=== PATIENT | female | born 1975 | race Caucasian/White ===

== ENCOUNTER 2025-02-27 09:56 | Emergency (ER) | payer OTHER, SELFPAY ==
--- OUTSIDE RECORDS SUMMARY | 2025-02-27 10:00 | XMS_ITS | Clinical Summary ---
Author Organization [facility] Address [address], [place] [address] Care Team Providers Care Kennel Staff Member Name Role Phone Lupe Anderson MD Primary Care Provider [phone] Source Comments You are receiving this document as you are listed as the primary care provider,follow-up provider, or the patient has been referred to you for consultation.This is in compliance with the Medicare and[facility] EHR Incentive Program,which states Providers who transition their patient to another setting of careor provider of care or refers their patient to another provider of care shouldprovide summary care record for each transition of care or referral. [employer] Allergies Active Allergy Reactions Criticality Noted Date Comments Amoxicillin-Pot Clavulanate 10/20/2017 Unknown reaction Meperidine 09/29/2017 Ketorolac 10/20/2017 Unknown reaction Other Other, see comments 02/09/2016 'can't remember the names of three pain medicines that I had a reaction to. They weren't sure which medicine I reacted to. My whole body went numb. Promethazine 10/20/2017 Unknown reaction Medications acetaminophen (TYLENOL) 500 MG tablet Take 500-1,000 mg by mouth every 4 hours as needed for Pain. Maximum acetaminophen dose is 4000 mg in 24 hours Active Active Problems Problem Noted Date Diagnosed Date Tear of medial meniscus of left knee, current Social History Tobacco Use Types Packs/Day Years Used Date Smoking Tobacco: Never Smokeless Tobacco: Never Alcohol Use Standard Drinks/Week Comments No 0 (1 standard drink = 0.6 oz pur e alcohol) Comments Unknown Sex and Gender Information Value Date Recorded Sex Assigned at Not on file Legal Sex Female 4:47 AM CDT Gender Identity Not on file Sexual Orientation Not on file Last Filed Vital Signs Vital Sign Reading Time Taken Comments Blood Pressure 119/71 01/11/2021 3:15 PM CDT Pulse 59 01/11/2021 3:30 PM CDT Temperature 36.8 C (98.2 F) 01/11/2021 2:30 PM CDT Respiratory Rate 14 01/11/2021 3:30 PM CDT Oxygen Saturation 99% 01/11/2021 3:30 PM CDT Inhaled Oxygen Concentration - - Weight 56.7 kg (125 lb) 12/21/2020 1:58 PM CDT Height 170.2 cm (5' 7) 12/21/2020 1:58 PM CDT Body Mass Index 19.58 12/21/2020 1:58 PM CDT Plan of Treatment Health Maintenance Due Date Last Done Comments Cervical Cancer Screening Due 1976 Colon Cancer Screening Plan Due 1976 Hep C Screening (Preventive Services) 1976 Mammogram 1976 HIV Screening (Preventive Services) 1992 Adult Preventive Visit 01/06/1994 HepB Vaccine (1) 01/06/1995 Cholesterol 01/06/2021 COVID-19 Vaccine ( season) 2024 11/06/2020, 09/27/2020 Influenza Vaccine (#1) 2025 , 05/19/2019, 05/20/2018, Additional history exists Zoster/Shingles Vaccine (1 of 2) 01/06/2026 DTaP/Tdap/Td Vaccine (3 - Tdap) 2031 2021, 10/08/2017 HepA Vaccine Aged Out No longer eligi ble based on patient's age to complete this topic Hib Vaccine Aged Out No longer eligi ble based on patient's age to complete this topic IPV (Polio) Vaccine Aged Out No longe r eligible based on patient's age to complete this topic MCV4 Vaccine Aged Out No longer eligi ble based on patient's age to complete this topic Meningococcal B Vaccine Aged Out No l onger eligible based on patient's age to complete this topic Pneumococcal Vaccine Aged Out No long er eligible based on patient's age to complete this topic Insurance [facility] Advance Directives * Full Code (Latest Code Status on File) Date Activated Date Inactivated Comments 01/11/2021 1:02 PM 01/11/2021 6:36 PM Care Teams Kennel Staff Member Relationship Specialty [place] [id number] [place], [place] [id number] PCP - General Family Practice 10/21/17
--- OUTSIDE RECORDS SUMMARY | 2025-02-27 10:00 | XMS_ITS | Clinical Summary ---
Author Organization [facility] Address [address] [place] [id number] Care Team Providers Care Shower Room Attendant Name Role Phone Clinic, [facility] Primary Care Provide r Allergies Active Allergy Reactions Criticality Noted Date Comments Meperidine 11/04/2017 Medications No known medications Active Problems Problem Noted Date Diagnosed Date Knee pain 02/01/2009 Family History Medical History Relation Comments Breast Cancer No family hx of Ovarian Cancer No family hx of Social History Tobacco Use Types Packs/Day Years Used Date Smoking Tobacco: Never Assessed Adolescent Education Answer Date Record ed Getting School Help Needed Not on file 05/27 Comments Unknown Sex and Gender Information Value Date Recorded Sex Assigned at Not on file Legal Sex Female 4:24 AM [employer]CE[employer] Gender Identity Not on file Sexual Orientation Not on file Plan of Treatment Health Maintenance Due Date Last Done Comments ADVANCE CARE PLANNING 1975 ANNUAL REVIEW OF HM ORDERS 1976 CT COLONOGRAPHY 1976 DIABETES SCREENING 1976 FIT 1976 FLEX SIG 1976 sDNA (Cologuard) 1976 COLONOSCOPY 01/06/1986 COLORECTAL CANCER SCREENING 01/06/1986 HIV SCREENING 01/06/1991 HEPATITIS C SCREENING 01/06/1994 HEPATITIS B VACCINE (1 of 3 - 19+ 3-dose series) 01/06/1995 LIPID 2016 COVID-19 VACCINE ( season) 2024 07/27/2021, 11/06/2020, 09/27/2020 YEARLY PREVENTIVE VISIT 05/26/2024 05/26/2023 PHQ-2 (once per calendar year) 2024 INFLUENZA VACCINE (Season Ended) 2025 06/03/2023, 06/21/2022, 07/02/2021, Additional history exists ZOSTER VACCINE (1 of 2) 01/06/2026 MAMMO SCREENING 07/05/2026 07/05/2024, 02/22, 03/03/2022, Additional history exists HPV TEST 05/26/2028 05/26/2023 PAP 05/26/2028 05/26/2023 DTAP/TDAP/TD VACCINE (3 - Td or Tdap) 2031 2021, 10/08/2017 HPV VACCINE Aged Out No longer eligi ble based on patient's age to complete this topic MENINGITIS VACCINE Aged Out No longer eligible based on patient's age to complete this topic PNEUMOCOCCAL VACCINE: PEDIATRICS (0 to 5 YEARS) AND AT-RISK PATIENTS (6 to 49 YEARS) Aged Out No longer eligible based on patient's age to complete this topic Procedures Procedure Name Priority Date/Time Associated Diagnosis Comments MA SCREENING BILATERAL W/ DWAINE Routine 07/05/2024 3:51 PM [employer] Visit for screening mammogram GYNECOLOGIC CYTOLOGY Routine 05/26/2023 3:01 PM CDT Encounter for screening for malignant neoplasm of cervix HPV HIGH RISK TYPES DNA CERVICAL Routine 05/26/2023 3:01 PM CDT Encounter for screening for malignant neoplasm of cervix from Last 3 Months or Most Recently Relevant to Health Maintenance Results * MA Screen Bilateral w/Dwaine (07/05/2024 3:51 PM [employer]) Anatomical Region Laterality Modality Breast Bilateral Mammography Impressions 07/06/2024 8:31 AM [employer]CELL [employer]CTOR [employer]ACER IMPRESSION: ACR BI-RADS Category 1: Negative BREAST CANCER SCREENING RECOMMENDATION: Routine yearly mammography beginning at age 40 or as discussed with your provider. The results and recommendations of this examination will be communicated to the patient. Ace Tripp MD Narrative 07/06/2024 8:31 AM INTERCELL [employer]CTOR [employer]ACER BILATERAL FULL FIELD DIGITAL SCREENING MAMMOGRAM WITH TOMOSYNTHESIS Performed on: 07/05/24 Compared to: 03/19/2023, 03/03/2022, and 03/01/2021 Technique: This study was evaluated with the assistance of Computer-Aided Detection. Breast Tomosynthesis was used in interpretation. Findings: The breasts are extremely dense, which lowers the sensitivity of mammography. There is no radiographic evidence of malignancy. Lupe Anderson MD IMG MAMMOGRAPHY ORDERABLES F inal Result * Gynecologic Cytology (PAP) (05/26/2023 3:01 PM CDT) Interpretation Negative for Intraepithelial Lesion or Malignancy (NILM) 05/29/2023 8:37 AM CDT [facility] at 0837 CDT Comment Papanicolaou Test Limitations: Cervical cytology is a screening test with limited sensitivity, and regular screening is critical for cancer prevention. Pap tests are primarily effective for the diagnosis/prevent ion of squamous cell carcinoma, not adenocarcinoma or other cancers. 05/29/2023 8:37 AM CDT [facility] Specimen Adequacy Satisfactory for evaluation, endocervical/yost sformation zone component present 05/29/2023 8:37 AM CDT [facility] Clinical Information none 05/29/2023 8:37 AM CDT [facility] LMP/Menopause Date 04/18/2023 05/29/2023 8:37 AM CDT [facility] Reflex Testing Yes regardless of result 05/29/2023 8:37 AM CDT [facility] Previous Abnormal? No 05/29/2023 8:37 AM CDT [facility] Previous Abnormal Diagnosis NL 05/29/2023 8:37 AM CDT [facility] Performing Labs The technical component of this testing was completed at [facility] 05/29/2023 8:37 AM CDT [facility] Brushing CERVIX UTERI STRUCTURE / Unknown 05/26/2023 3:01 PM CDT 05/26/2023 9:30 PM CDT Sandy CERNA - JOSIE TEJEDA Final Result [facility] Specialty Lab [address], [address] [place] [address], [place] [phone] * HPV High Risk Types DNA Cervical (05/26/2023 3:01 PM CDT) Other HR HPV Negative Negative 06/03/2023 6:22 AM CDT [facility] HPV16 DNA Negative Negative 06/03/2023 6:22 AM CDT [facility] HPV18 DNA Negative Negative 06/03/2023 6:22 AM CDT [facility] FINAL DIAGNOSIS This patient's sample is negative for HPV DNA. This test was developed and its performance characteristics determined by the [facility]. It has not been cleared or approved by the FDA. The laboratory is regulated under CLIA as qualified to perform high-complexity testing. This test is used for clinical purposes. It should not be regarded as investigational or for research. METHODOLOGY: The [employer] 4800 system uses automated extraction, simultaneous amplification of HPV (L1 region) and beta-globin, followed by real time detection of fluorescent labeled HPV and beta globin using specific oligonucleotide probes. The test specifically identifies types HPV 16 DNA and HPV 18 DNA while concurrently detecting the rest of the high risk types (31, 33, 35, 39, 45, 51, 52, 56, 58, 59, 66 or 68). COMMENTS: This test is not intended for use as a screening device for woman under age 30 with normal cervical cytology. Results should be correlated with cytologic and histologic findings. Close clinical followup is recommended. 06/03/2023 6:22 AM CDT [facility] Brushing CERVIX UTERI STRUCTURE / Unknown Non-blood Collection / Unknown 05/26/2023 3:01 PM CDT 06/01/2023 10:02 AM CDT us Sandy Curiel MD LAB - BLOOD ORDERABLES Final R esult [facility] [address] [place] [address], [place] [phone] from Last 3 Months or Most Recently Relevant to Health Maintenance Insurance NONE (Work) [id number] [place] [id number] [facility] Care Teams Shower Room Attendant Relationship Specialty Start Date End Date Clinic, [facility] [address] [place] [address] PCP - General 10/16/17
--- OUTSIDE RECORDS SUMMARY | 2025-02-27 10:00 | XMS_ITS | Data Portability ---
Author Organization [place] - [place] CLIMATOLOGY PROFESSOR, [id number] Address [address] [place] [address] Care Team Providers Care Digital Associate Media Director Name Role Phone JAIDEN TOMLIN Primary Care Provider Assessment No assessment recorded. Plan of Treatment Reminders Order Date Submit Date Provider Last Modified By Organization Details Last Modified Time Details Appointments None recorded. Lab lipid panel, serum 2022 023 david Dunbar (Lab), [address], [place], [address], 4 08:57:40 urinalysis, dipstick, auto 2022 023 [email or web address] [email or web address] [facility], [address] [facility], [address], [place], [address], 3 19:55:58 Pap test, slide(s), cervical [address] [facility], [address] [place] [address], [address], [place], [address], 3 07:26:25 hemoglobin (Hb), blood 2022 023 david Dunbar (Lab), [address], [place], [address], 4 08:57:40 vitamin D panel, serum or plasma 2022 023 david Dunbar (Lab), [address], [place], [address], 4 08:57:39 test, urine 2022 023 [email or web address] [id number]_agvzdtv rtners_[facility], [address] [facility], [address], [place], [address], 19:55:58 glucose, QN [mass/volum e], blood 2022 023 [facility] (Lab), [address], [place], [address], 4 08:57:40 Referral None recorded. Procedures None recorded. Surgeries None recorded. Imaging None recorded. Medication Orders None recorded. Patient TargetsNo targets recorded. Patient InstructionsNo instructions recorded. Reason for Referral None Reported. Results Created Date Observation Date Name Description Value Unit Range Abnormal Flag Note LastModifiedBy Organization Detail LastModifiedTime 05/26/2005/26/2023 GYNEC OLOGI C CYTOL OGY (PAP SMEAR ) gynecologic cytology SEE RESULT S BELOW SPECI MEN SOURC E [place] ing Cervi x BKR LAB AP MARINE SCIENTIST INTER PRETA TION: Negat mauricio for Intra epith elial Mars n or Chelsie wooten (NILM ) Elect prasad victoria nolvia d by Javier Raphael, CT (ASCP ) on 2022 at 8:37 AM Path repor [email or web address] ments Imp Spec: Papan icola ou Test Limit ation s: Cervi shan cytol ogy is a scree shana test with limit ed sensi tivit y, and regul ar scree shana is criti shan for cance r preve ntion . Pap tests are prima rily effec tive for the diagn osis/ preve ntion of squam ous cell carci noma, not adeno carci noma or other cance rs. BKR LAB AP MARINE SCIENTIST ADEQU ACY: Satis facto ry for evalu ation , endoc ervic al/tr ansfo rmati on zone compo nent prese nt Path repor t.rel evant Hx Spec: none BKR LAB AP LMP: 08/26 /2023 BKR LAB AP HPV REFLE X: Yes regar dless of resul t BKR LAB AP PREVI OUS ABNOR MAL: No BKR LAB AP PREVI OUS ABNL DX: NL Path repor [email or web address] ments Imp Spec: The techn ical compo nent of this testi ng was compl eted at [facility] Labor atory Not Available [address], [place], [address], 06/03/2023 07:26:25 05/26/20 23 05/26/2023 HPV HIGH RISK TYPES DNA CERVI SHAN other HR HPV Negati ve negati ve Not Available [address], [place], [address], 06/03/2023 07:26:44 05/26/20 23 05/26/2023 HPV HIGH RISK TYPES DNA CERVI SHAN HPV16 DNA Negati ve negati ve Not Available [address], [place], [address], 06/03/2023 07:26:44 05/26/20 23 05/26/2023 HPV HIGH RISK TYPES DNA CERVI SHAN HPV18 DNA Negati ve negati ve Not Available [address], [place], [address], 06/03/2023 07:26:44 05/26/20 23 05/26/2023 HPV HIGH RISK TYPES DNA CERVI SHAN final diagnosis See note below This patie nt's sampl e is negat mauricio for HPV DNA. This test was devel oped and its perfo rmanc e gamal cteri stics deter mined by the [facility], [facility] Labor atory . It has not been clear ed or appro millie by the FDA. The labor atory is regul ated under CLIA as quali fied to perfo rm high- compl exity testi ng. This test is used for clini shan purpo ses. It shoul d not be regar ded as inves tigat ional or for resea rch. METHO DOLOG Y: The [employer] [address] 4800 syste m uses autom ated extra ction , simul taneo us ampli ficat ion of HPV (L1 regio n) and beta- globi n, follo wed by real time detec tion of fluor escen t label ed HPV and beta globi n using speci fic oligo nucle otide probe s. The test speci fical ly ident ifies types HPV 16 DNA and HPV 18 DNA while concu rrent ly detec ting the rest of the high risk types (31, 33, 35, 39, 45, 51, 52, 56, 58, 59, 66 or 68). COMME NTS: This test is not inten ded for use as a scree shana devic e for woman under age 30 with juan l cervi shan cytol ogy. Resul ts shoul d be corre lated with cytol ogic and histo logic findi ngs. Close clini shan follo wup is recom tiago d. Not Available [address], [place], [address], 06/03/2023 07:26:44 05/26/20 23 05/26/2023 pregn faye test, urine Unknown Analyte negati ve Not Available [id number] pa [facility] [address] [place] [address], [address], 05/26/2023 15:53:36 05/26/20 23 05/26/2023 pregn faye test, urine Unknown Analyte Negati ve Not Available [id number]_ydrjf pa [facility] [address] [facility], [place], [address], 05/26/2023 15:53:36 05/26/20 23 05/26/2023 urina lysis , dipst ick, auto Unknown Analyte Clean Catch Not Available [id number]_msezy pa [facility] ry [address], [place], [address], 05/05/2023 17:31:45 05/26/2005/26/2023 urina lysis , dipst ick, auto Unknown Analyte negati ve Not Available [id number]_[id number] pa rtners_[facility] ry [address], [place], [address], 05/05/2023 17:31:45 05/26/2005/26/2023 urina lysis , dipst ick, auto Unknown Analyte negati ve Not Available [id number] pa rtners_[facility] [address], [place], [address], 05/05/2023 17:31:45 05/26/20 23 05/26/2023 urina lysis , dipst ick, auto Unknown Analyte negati ve Not Available [id number]_lfkwf pa rtners_[facility] [address], [place], [address], 05/05/2023 17:31:45 05/26/20 23 05/26/2023 urina lysis , dipst ick, auto Unknown Analyte 1.015 Not Available Cc003_ metropa rtners_lázaro ry [address], [place], [address], 05/05/2023 17:31:45 05/26/20 23 05/26/2023 urina lysis , dipst ick, auto Unknown Analyte negati ve Not Available [id number]_szldv pa rtners_[facility] ry [address], [place], [address], 05/05/2023 17:31:45 05/26/20 23 05/26/2023 urina lysis , dipst ick, auto Unknown Analyte 6.0 Not Available Cc003_ metropa rtners_l[facility]aro ry [address], [place], [address], 05/05/2023 17:31:45 05/26/2005/26/2023 urina lysis , dipst ick, auto Unknown Analyte negati ve Not Available [id number]_wadon pa rtners_l[facility] [address], [place], [address], 05/05/2023 17:31:45 05/26/2005/26/2023 urina lysis , dipst ick, auto Unknown Analyte 0.2 Not Available Cc003_ metropa rtners_lázaro ry [address], [place], [address], 05/05/2023 17:31:45 05/26/2005/26/2023 urina lysis , dipst ick, auto Unknown Analyte negati ve Not Available [id number]_spujh pa rtners_l[facility]aro ry [address], [place], [address], 05/05/2023 17:31:45 05/26/2005/26/2023 urina lysis , dipst ick, auto Unknown Analyte negati ve Not Available [id number]_txelg pa rtners_l[facility]aro ry [address], [place], [address], 05/05/2023 17:31:45 05/26/2005/26/2023 urina lysis , dipst ick, auto Unknown Analyte yellow Not Available Cc003_ metoraa rtners_lázaro ry [address], [place], [address], 05/05/2023 17:31:45 05/26/2005/26/2023 urina lysis , dipst ick, auto Unknown Analyte slight ly cloudy Not Available [id number] pa rtners_l[facility]aro ry [address], [place], [address], 05/05/2023 17:31:45 Result Notes None recorded. Problems Name Problem SNOMED Code Status Onset Date Resolution Date Notes Provider Name and Address Organization Details Recorded Time Hyperlipidemia 87234409 Active ERNIE Mera CLIMATOLOGY PROFESSOR 3 15:22:35 Problem Notes None recorded. Procedures Surgical History Date Name Laterality Status Provider Name and Address Organization Details Recorded Time 3 Date of Last Mammogram completed Breanna KLEIN CLIMATOLOGY PROFESSOR 05/26/2023 15:22:21 8 Date of Last Pap Smear completed Breanna KLEIN CLIMATOLOGY PROFESSOR 05/05/2023 17:30:34 procedure on knee [facility] 05/26/2023 15:25:04 Imaging Results None recorded. Procedure Notes None recorded. Medical Equipment None Reported. Allergies Allergen ID Allergen Name Allergen Category Reaction Reaction Severity Criticality Documentation Date Start Date Code Code System Note Provider Name and Address Organization Details Recorded Time 72324 Dairy medicatio n Not available Not available Not available 03/29/2020 20173 UNK Not Available [facility] 0 05:13:16 99111 Demerol medicatio n Not available Not available Not available 03/29/2020 56100 1 RxNorm Not Available [facility] 0 05:13:16 Medications Not known to be on any medication Vitals Date Recorded Body weight Body mass index (BMI) Body height Systolic And Diastolic Provider Name and Address Organization Details Last Updated DateTime 05/26/2023 56864.23 g 20.5 kg/m2 167.64 cm 118/66 mm[Hg] Breanna KLEIN CLIMATOLOGY PROFESSOR 05/26/2023 15:30:37 Social History Question Answer Notes LastModified by Organizat ion Details LastModified Time Tobacco Smoking Status Never Smoker Tobacco *Status: Never Not Available [facility] 04/02/2020 11:53:46 Do You Have An Advance Directive? Yes Information not available 05/26/2023 What Is Your Level Of Caffeine Consumption? None Information not available 05/26/2023 History Of Domestic Violence No Denies Any History Of Domestic Violence [email or web address] Information not available 04/02/2020 Ethnic Background White Or Information not available 05/26/2023 Marital Status [facility] [employer] on not available 04/02/2020 Performs Monthly Self-breast Exam? Yes Information not available 05/26/2023 What Is Your Relationship Status? Information not available 05/26/2023 Are You Sexually Active? Yes Currently Sexually Active [email or web address] not available 04/02/2020 Sex: Female Functional Status Question Answer Note LastModified by Organizat ion Details LastModified Time Do you use any illicit or recreational drugs? No Information not available 05/26/2023 What is your level of alcohol consumption? None Information not available 05/26/2023 Are you currently employed? Yes Information not available 05/26/2023 What is your occupation? Teacher [email or web address] Information not available 04/02/2020 What is your exercise level? Moderate Exercises on a regular basis *Note: 5-6 HOURS WEEKLY [email or web address] Information not available 04/02/2020 Mental Status None recorded. Family History Relationship Description Onset Age of this Age Resolved Age Notes LastModified by Organization Details LastModified Time Maternal Grandfather Family history of malignant neoplasm Family Histor y of Cancer ; Brain Not available 03/29/2020 05:37:24 Maternal Aunt Family history of diabetes mellitus Family Histor y of Diabet es: MANOJN AL AUNT Not available 03/29/2020 05:37:24 Maternal Grandmother Family history of diabetes mellitus Family Histor y of Diabet es: MANOJN AL AUNT Not available 03/29/2020 05:37:24 Unspecified Relation Malignant tumor of breast Aunt Not available 2022 15:24:03 Medical History Condition Response Cardiology- High Cholesterol Gynecological History Statement/Question Response History of Vulvar Dysplasia N HPV Test Negative Date of Last Mammogram 03/24/2023 Date of LMP 04/18/2023 History of Cervical Dysplasia N Sexual Orientation Heterosexual History of Infertility N Sexually Active Y Age at first intercourse 22 Diethylstilbestrol (MADELINE) exp osed daughters of women who took MADELINE during ? N History of Gestational Diabetes N History of PCOS N History of Endometriosis N History of Abnormal PAP N History of Recurrent Ovarian Cysts N Total lifetime partners Less than 5 Age at Menarche: 19 History of Sexually Transmitted Infectio n N Current Control Method None History of Fibroids N Urinary Incontinence Symptoms N Date of Last Pap Smear 10/13/2017 History of Dysmenorrhea N Obstetrics History GPAL:G 2 P 2 0 0 2 Type Value Multiple Births 0 Full Term 2 Induced 0 Spontaneous 0 Premature 0 Living 2 Ectopics 0 Total 2 Past Encounters Encounter ID Performer Location Encounter Start Date Encounter Closed Date Diagnosis/Indication Diagnosis SNOMED-CT Code Diagnosis ICD10 Code Diagnosis Note [id number] Sandy Curiel MD [id number] DELICIA Go[facility]_[place] Y [address] [address] [place] [address] 05/26/2023 15:01:01 05/27/2023 11:09:17 Gynecologic examination 42812582 Z01.419 Screening for malignant neoplasm of cervix 945307842 Z12.4 Irregular periods 177393 07 N92.6 missed 1 and reassured and if spotting rtc Hyperlipid emia screening 968446339 Z13.220 Diabetes m ellitus screening 402415916 Z13.1 Malnutriti on screening 536011040 Z13.21 Anemia screening 3230651 07 Z13.0 Family his tory of cancer of colon 298361241 Z80.0 dad age 67 and doing well Health Concerns Section Related Observation LastModified by Organization Detai ls LastModified Time None Recorded Concern Status LastModified by Organization Details LastModified Time None Recorded Advance Directives Directive Y: Payers None recorded. Notes Date Note Type Note Provider Name and Address Organization Details Recorded Time 05/26/2023 text/html This is a 48 yea r old female, whose LMP was 04/18/2023, and she is present today for her annual exam. Her menses are regular. She has had no spotting and denies dysmenorrhea. She is sexually active. She reports no problems with intercourse. She is using _what control_. She is having no additional data scientist symptoms. She has not had a history of abnormal pap smears. Pt requests STI testing: [place] [address] [facility],[address], [place], [address], [place] - [facility] CLIMATOLOGY PROFESSOR 05/26/2023 20:12:47 OBGyn Episode No OBEpisode recorded.
--- OUTSIDE RECORDS SUMMARY | 2025-02-27 10:00 | XMS_ITS | Encounter Summary ---
Author Organization [facility] [place] Address [address] [place] [address] Care Team Providers Care Sea Shell Gatherer Name Role Phone [facility], [facility] Primary Care Provide r Encounter Details Date Type Department Care Team (Late st Contact Info) Description 05/26/2023 [facility] Only [facility] [address] [place] [address] Sandy Curiel MD [place] [id number] [place] [id number] Encounter for screening for diabetes mellitus (Primary Dx); Encounter for screening for lipoid disorders; Encounter for screening for diseases of the blood and blood-forming organs and certain disorders involving the immune mechanism; Encounter for screening for nutritional disorder Social History Tobacco Use Types Packs/Day Years Used Date Smoking Tobacco: Never Assessed Adolescent Education Answer Date Record ed Getting School Help Needed Not on file 05/27 Comments Unknown Sex and Gender Information Value Date Recorded Sex Assigned at Not on file Legal Sex Female 4:24 AM MANAGER QUALITY Gender Identity Not on file Sexual Orientation Not on file documented as of this encounter Plan of Treatment Not on file documented as of this encounter Visit Diagnoses Diagnosis Encounter for screening for diabetes mellitus- Primary Screening for diabetes mellitus Encounter for screening for lipoid disorders Screening for lipoid disorders Encounter for screening for diseases of the blood and blood-forming organs and certain disorders involving the immune mechanism Encounter for screening for nutritional disorder Screening for other and unspecified endocrine, nutritional, metabolic, and immunity disorders documented in this encounter Care Teams Sea Shell Gatherer Relationship Specialty Start Date End Date [facility] [address] [place] [address] PCP - General 10/16/17 documented as of this encounter
--- OUTSIDE RECORDS SUMMARY | 2025-02-27 10:00 | XMS_ITS | Clinical Summary ---
Author Organization [facility] Address [address] [place] [address] Care Team Providers Care Saw Feeder Name Role Phone Lupe Anderson MD Primary Care Provider [phone] Allergies Active Allergy Reactions Criticality Noted Date Comments Amoxicillin-Pot Clavulanate *Unknown 10/20/19 18 Meperidine Nausea Only,Confusion 11/03/2011 Promethazine Nausea Only,Confusion 11/03/2011 Ketorolac Nausea Only,Confusion 11/03/2011 Medications No known medications Active Problems Problem Noted Date Diagnosed Date Tear of medial meniscus of left knee, current Acute pharyngitis, unspecified 06/22/2020 Myopia of both eyes 06/13/2016 Knee pain 02/01/2009 ALLERGIC CONJUNCTIVITIS-L 04/17/2005 Encounters Date Type Department Care Team Description 02/27/2025 Nurse Triage [facility] [address] [place] [address] Lupe Anderson MD Dizziness from Last 3 Months Immunizations Immunization Administration Dates Next Due Tdap 2021 Social History Tobacco Use Types Packs/Day Years Used Date Smoking Tobacco: Never Smokeless Tobacco: Never Alcohol Use Standard Drinks/Week Comments Not Currently 0 (1 standard drink = 0.6 oz pur e alcohol) PHQ-2 Answer Date Recorded PHQ-2 TOTAL SCORE 0 07/21/2022 Social Connections Answer Date Recorded Frequency of Communication with Friends and Fami ly Not on file 04/19/2024 Financial Resource Strain Answer Date R ecorded Difficulty of Paying Living Expenses 3 04/10/2023 Difficulty of Paying Living Expenses Not on file 04/10/2023 Food Insecurity Answer Date Recorded Worried About Running Out of Food in the Last Ye ar 1 04/10/2023 Transportation Needs Answer Date Record ed Lack of Transportation (Medical) 1 04/10/2023 Housing Stability Answer Date Recorded Unable to Pay for Housing in the Last Year 1 04/10/2023 Comments No Sex and Gender Information Value Date Recorded Sex Assigned at Not on file Legal Sex Female 5:51 AM SKI INSTRUCTOR Gender Identity Not on file Sexual Orientation Not on file Obstetrics History Last Filed Vital Signs Vital Sign Reading Time Taken Comments Blood Pressure 105/69 04/10/2023 8:31 AM CDT Pulse 83 04/10/2023 8:31 AM CDT Temperature 36.4 C (97.6 F) 04/10/2023 8:31 AM CDT Respiratory Rate 14 04/10/2023 8:31 AM CDT Oxygen Saturation 99% 04/10/2023 8:31 AM CDT Inhaled Oxygen Concentration - - Weight 57.9 kg (127 lb 11.2 oz) 04/10/2023 8:31 AM CDT Height 167 cm (5' 5.75) 07/21/2022 12: 21 PM SKI INSTRUCTOR Body Mass Index 20.77 07/21/2022 12:21 PM SKI INSTRUCTOR Plan of Treatment Health Maintenance Due Date Last Done Comments HIV for age 15-65 01/06/1991 Hepatitis C screening for age 18-79 01/06/1994 Hepatitis B series for 19+ (1 of 3 - 19+ 3-dose series) 01/06/1995 Pap test for age 21-65 11/12/2014 11/13/2011, 2011 Colonoscopy through age 75 01/06/2021 Lipids for age 45-75 01/06/2021 BMI (ht and wt on same day) for age 18+ 07/21/2023 07/21/2022, 2021 Depression screening for age 12+ 07/21/2023 07/21/2022, 03/08/2021 COVID-19 vaccine series ( season) 2024 Influenza Vaccine (#1) 2025 Mammogram for age 45-75 07/05/2025 07/05/20 24, 03/19/2023, 03/03/2022, Additional history exists Tetanus booster 2031 2021 Pneumococcal series for age 6-49 Aged Out No longer eligible based on patient's age to complete this topic Procedures Procedure Name Priority Date/Time Associated Diagnosis Comments SCAN-MAMMOGRAPHY REPORT 07/05/2024 12:00 AM SKI INSTRUCTOR GYNECOLOGICAL PANEL Timed 11/13/2011 8 :55 AM CDT from Last 3 Months or Most Recently Relevant to Health Maintenance Results * SCAN-MAMMOGRAPHY REPORT (07/05/2024 12:00 AM SKI INSTRUCTOR) Anatomical Region Laterality Modality Other us Scanner OTHER Final Result * GYNECOLOGICAL PANEL (11/13/2011 8:55 AM CDT) CYTOLOGY CYTOPATHOLOGY REPORT [facility] Status: Final Status [id number] CLINICAL INFORMATION Last Date of LMP :10/19/11 Last Pap Date :09/2010 Last Pap Result :WNL ELSEWHERE ABN [place]/Bx Past 5 YRS :None Hormone Usage :BCP/OCP/Patch/Rin g [place]/Bx done today :No Additional Information :NONE HPV Request :HPV and PAP. See Separate Report. SPECIMEN SOURCE :Cervical/vaginal ThinPrep Vial, screening SPECIMEN ADEQUACY :Satisfactory for evaluation Endocervical component present. INTERPRETATION/RES ULT Negative for intraepithelial lesion or malignancy (NIL) Cytology 1st Screener :kek Signed by :judy This specimen was screened by the FDA approved ThinPrep Imaging System and manually reviewed. NOTE: The Pap test is a screening technique, not a diagnostic procedure. It is used primarily to screen for squamous cancers and precursor lesions. Published studies have shown that it is subject to both false negative and false positive results. The pap test should not be used as the sole means to diagnose or exclude pre-malignant and malignant lesions. COLLECTED:11/13/11 ACCESSIONED: 11/14/11 SIGNED: 11/18/11 [facility] P[facility] [place] CODE NIL [facility] 11/13/2011 8:55 AM CDT 11/14/2011 8:55 AM CDT us Marlene Lou MD PATHOLOGY/CYTOLOGY Final Result [facility] [place] [address] [place] [id number] from Last 3 Months or Most Recently Relevant to Health Maintenance Insurance ERNIE TREVINO [id number] Care Teams Saw Feeder Relationship Specialty [place] [address] [place] [address] PCP - General Family Practice 02/28/21
[2025-02-27 10:13] VITALS: BP 138/85; PULSE 75; RESP 16; TEMP 36.1; O2SAT 100; BMI 19.6
--- NOTE | 2025-02-27 10:49 | CRLHL7_ITS ---
For Patients: As a result of the Century Cures Act, medical imaging exams and procedure reports are released immediately into your electronic medical record. You may view this report before your referring provider. If you have questions, please contact your health care provider. Indication: dizzy, speech problems Technique: Noncontrast sagittal T1 weighted, axial FLAIR, axial T2 weighted, and axial diffusion weighted sequences are provided. Comparison: No prior studies available for comparison at this institution. Findings: The ventricles, sulci and gyri are normal size, shape and contour for age. Punctate focus of T2 prolongation in the right superior frontal gyrus subcortical white matter. The midline structures are centrally located with no evidence of shift. No pathologic susceptibility artifacts. There are no suspicious intra or extra-axial fluid collections. No region of restricted diffusion. Expected flow voids in the cavernous carotids and basilar artery. Impression: 1. No acute intracranial abnormality. 2. Punctate focus of T2 prolongation in the right superior frontal gyrus subcortical white matter is nonspecific and of doubtful current clinical significance. Differential considerations include sequela of migraine headaches, hypertension, diabetes, collagen vascular disease. Dictated by Richard Lezama MD @ 02/27/2025 12:02:28 PM (Electronically Signed)
[2025-02-27] MEDS: ASPIRIN 81 MG TAB.CHEW 324 MG PO (11:00)
[2025-02-27] MEDS: MECLIZINE HCL 25 MG TABLET PO (11:01)
--- NOTE | 2025-02-27 11:03 | ED_ITS ---
HPI - General Adult General Date Seen: 02/27/25 Chief complaint: Dizziness/Vertigo Stated complaint: blurry vision and having trouble with her words Time Seen by Provider: 02/27/25 10:32 History of Present Illness HPI narrative: Patient is a 50-year-old, generally healthy woman who presents for evaluation of dizziness and some speech difficulty this morning. She says that she woke up at around 3:30 a.m. to let the dog out and noted that when she got out of bed she felt dizzy. She describes this as a sense of imbalance, no particular spinning sensation. She thought initially that maybe she just got up too fast but the sensation remained. She felt like she needed to hold onto things was she was going to let the dog out. She got back into bed, thinking it would go way, but when she woke up at 5:30 a.m. this sensation remained. She does not feel that it is particularly positional, it is present both at rest and with movement and it is about the same. She has a posterior headache which is mild. She says that she had a meeting at 6:00 a.m. which she went to, continued to feel dizzy throughout and felt like it was somewhat difficult to speak during the meeting. It sounds as if her speech was mostly fluent but she had some intermittent word-finding difficulty which she feels is unusual for her. Word-finding difficulty is now better, but she continues to feel dizzy. She called her clinic in [place] to make an appointment and was told she needed to go to the ER. She notes that last week she had a GI bug with some vomiting and diarrhea which resolved. She feels like she is rehydrated. She denies any medical history of significance. She does not take any medicines. Does not smoke. Her dad has had a couple of strokes. Related Data Allergies Allergy/AdvReac Type Severity Reaction Status Date / Time lactose Allergy Verified 02/27/25 10:26 Gluten Meal Allergy Mild Uncoded 02/27/25 10:26 demerol Allergy Uncoded 07/13/22 13:43 Review of Systems Status of ROS: Reports: 10 or more systems reviewed and unremarkable except as noted in History and below [facility] Social History Smoking Status: Never smoker Exam Narrative: Exam Narrative: Vital signs reviewed In general, alert, nontoxic in age woman. She looks comfortable, breathing easily. Head: Normocephalic, atraumatic. Eyes: Sclera clear. Pupils equal and reactive. Extraocular movements are full, no significant nystagmus. On upward gaze, she says it feels like she has ?the wrong contact prescription, though she denies diplopia or blurry vision. ENT: Mucous membranes moist. Neck: Supple without adenopathy. Heart: Regular rate and rhythm without murmur. Lungs: Clear. No increased work of breathing, crackles or wheezes. Abdomen: Soft, nontender to palpation. Extremities: Well perfused, pulses intact. No significant edema. Neurologic: Alert, conversant. Speech fluent, face symmetric. Moves all extremities equally. Romberg is positive. Gait is stable, no ataxia, cerebellar function intact by finger-nose testing. Skin: Warm, dry well perfused. Affect: Normal. Const: Vital Signs, click to edit/add: Vital Signs - 24 hr 02/27/25 10:13 02/27/25 12:31 Temperature 97.0 F L Pulse Rate [Right] 75 87 Respiratory Rate 16 16 Blood Pressure [Ri ght Upper Arm] 138/85 115/63 Pulse Oximetry 100 98 Oxygen Delivery Me thod Room Air Room Air Course Course ED Course: Reviewed causes of dizziness/vertigo with her. She is not hypertensive, she is relatively young and has no specific risk factors for stroke aside from her family history. However, she does not describe a strong positional component to this, has a couple of minor findings on exam, and overall I do not think it would be unreasonable to rule out a central cause for her symptoms. She would prefer this as she does have some fevers around this given her dad's history. Therefore, I have ordered a MRI, initially planned to do CT and CT angiogram, but the MRI was ready immediately so will get that test 1st. Will check electrolytes given her recent vomiting and diarrhea. Will given aspirin and meclizine and see if that improves her symptoms. MRI completed, I reviewed and did not see anything significantly abnormal. Radiology report reviewed and I did discuss her case with neurology on-call as well. Neurology reviewed the MRI. Radiology noted 1 tiny area of T2 signal prolongation, did not feel this was clinically significant and neurology did not feel that this was significant nor did they feel it needed to be followed up on. Patient did note a lot of change with meclizine. Neurology did not feel that CT or CT angiogram was necessary at this time. Patient does not have any evidence of a 3rd nerve palsy, does not have any abnormalities on extraocular movements or pupils to suggest need to evaluate for aneurysm. Therefore, she felt that MRI was adequate and additional imaging not necessary. I have reviewed all this with the patient. She feels significantly relieved by this. She would like to have something else to try at home and K she feels more symptomatic, so I have given her prescription for Ativan to try. Asked her to make a follow-up appointment in the next week or 2 with primary care, reviewed the natural course of peripheral vertigo. Reviewed reasons to return such as severe headache, vomiting, double vision etcetera. She also had an EKG here, this shows a sinus rhythm today with a ventricular rate of 54. No ST segment changes, otherwise normal EKG. Vital Signs Vital signs: Initial Vital Signs Temperature 97.0 F L 02/27/25 10:13 Temperature Source Temporal Artery Scan 02/27/25 10:13 Pulse Rate 75 02/27/25 10:13 Respiratory Rate 16 02/27/25 10:13 Blood Pressure 138/85 02/27/25 10:13 Blood Pressure Mean 102 02/27/25 10:13 Blood Pressure Position Sitting 02/27/25 10:13 Pulse Oximetry 100 02/27/25 10:13 Oxygen Delivery Method Room Air 02/27/25 10:13 Vital Signs Temperature 97.0 F L 02/27/25 10:13 Pulse Rate 75 02/27/25 10:13 Respiratory Rate 16 02/27/25 10:13 Blood Pressure 138/85 02/27/25 10:13 Pulse Oximetry 100 02/27/25 10:13 Oxygen Delivery Method Room Air 02/27/25 10:13 Temperature 97.0 F L 02/27/25 10:13 Pulse Rate 87 02/27/25 12:31 Respiratory Rate 16 02/27/25 12:31 Blood Pressure 115/63 02/27/25 12:31 Pulse Oximetry 98 02/27/25 12:31 Oxygen Delivery Method Room Air 02/27/25 12:31 Medications Administered Medications: Discontinued Medications Generic Name Dose Route Start Last Admin Trade Name Freq PRN Reason Stop Dose Admin Aspirin 324 mg 02/27/25 10:48 02/27/25 11:00 Aspirin 81 Mg Tab.Chew PO 02/27/25 10:49 324 mg ONCE ONE Administration Meclizine HCl 25 mg 02/27/25 10:56 02/27/25 11:01 Meclizine Hcl 25 Mg Tablet PO 02/27/25 10:57 25 mg ONCE ONE Administration Medical Decision Making Lab Data Labs: Lab Results 02/27/25 Range/Units 11:00 WBC 3.25 L (4.50-11.00) K/uL RBC 4.54 (4.00-5.20) m/uL Hgb 13.8 (12.0-16.0) gm/dL Hct 40.7 (33.0-51.0) % MCV 90 (80-100) fL MCH 30 (26-34) pg MCHC 34 (32-36) gm/dL RDW Coeff of Miguel Angel 11.6 (11.5-15.5) % Plt Count 226 (140-440) K/uL Neut % (Auto) 52.7 (42.0-72.0) % Lymph % (Auto) 35.4 (20-44) % Hardeman % (Auto) 9.8 (0.0-11.0) % Eos % (Auto) 1.2 (0.0-7.0) % Baso % (Auto) 0.6 (0.0-3.0) % Neut # (Auto) 1.70 (1.7-7.0) K/uL Lymph # (Auto) 1.20 (0.90-2.90) K/uL Hardeman # (Auto) 0.30 (0.00-0.90) K/UL Eos # (Auto) 0.00 (0.00-0.50) K/uL Baso # (Auto) 0.00 (0.00-0.30) K/uL Abs Immat Gran (auto) 0.00 (0.00-0.30) K/uL Imm/Tot Granulo (auto) 0.3 % Sodium 138 (135-149) mmol/L Potassium 4.2 (3.6-5.1) mmol/L Chloride 102 (96-114) mmol/L Carbon Dioxide 32 (20-32) mmol/L Anion Gap 4 L (7-15) mEq/L BUN 20 (5-24) mg/dL Creatinine 1.0 (0.5-1.5) mg/dL Estimated Creat Clear 60.91 Estimated GFR 69 ml/min Glucose 97 (60-115) mg/dL Calcium 9.8 (8.4-10.6) mg/dL Discharge Plan Discharge Clinical Impression: Peripheral vertigo Patient Disposition: Home, Self-Care Condition: Stable Instructions: Vertigo (ED) Additional Instructions: Maintain hydration, take time when going from lying/sitting to standing. Your MRI today is normal, without any evidence of stroke, mass, bleeding or other acute problem. However, if you acutely worsen at any time, notes severe headache, double vision, vomiting or other significant neurologic changes, return to the emergency department. Otherwise, I would recommend making an appointment with your primary clinic in the next week or 2. If you are not improved in that time, please follow-up. If you need for symptomatic control, I have sent a prescription for Ativan. Follow Up/Referrals: Provider,Not a Local [Non-Staff, Family Practice] Stand Alone Forms: [facility] Info Instructions
[2025-02-27 11:11] LABS: Hematocrit 40.7 % (33.0-51.0); Hemoglobin* 13.8 gm/dL (12.0-16.0); Immature Granulocytes Pct Auto 0.3 %; Mean Corpuscular HGB Conc 34 gm/dL (32-36); Mean Corpuscular Hemoglobin 30 pg (26-34); Mean Corpuscular Volume 90 fL (80-100); RDW Coefficient of Variation % 11.6 % (11.5-15.5); Red Blood Count 4.54 m/uL (4.00-5.20); White Blood Count* 3.25 K/uL (4.50-11.00)
[2025-02-27 11:12] LABS: Immature Granulocytes Abs Auto 0.00 K/uL (0.00-0.30); Lymphocytes Absolute Auto 1.20 K/uL (0.90-2.90); Slide Review Reflex No
[2025-02-27 11:26] LABS: Chloride* 102 mmol/L (96-114); Sodium* 138 mmol/L (135-149)
[2025-02-27 11:27] LABS: Potassium* 4.2 mmol/L (3.6-5.1)
[2025-02-27 11:29] LABS: Blood Urea Nitrogen* 20 mg/dL (5-24); Creatinine* 1.0 mg/dL (0.5-1.5); Est. Creatinine Clearance* 60.91; Estimated Glomerular Filt Rate 69 ml/min
[2025-02-27 11:30] LABS: Anion Gap 4 mEq/L (7-15); Calcium* 9.8 mg/dL (8.4-10.6); Carbon Dioxide* 32 mmol/L (20-32); Glucose* 97 mg/dL (60-115)
[2025-02-27 12:31] VITALS: BP 115/63; PULSE 87; RESP 16; O2SAT 98
== END 2025-02-27 13:17 | disposition home or self-care (01) ==
PROVIDERS: Emergency Provider Emergency Medicine; PCP Family Medicine
DX: R42 Dizziness and giddiness (principal)
CPT/HCPCS: 36415; 70551; 80048; 85025; 99284; A9270